=== PATIENT | male | born 1985 | race Caucasian/White ===

== ENCOUNTER 2021-06-18 15:02 | Emergency (ER) | payer OTHER ==
[~2021-06-18] VITALS: Ht 167.6 cm; Wt 83.0 kg
[~2021-06-18 15:02] MED LIST: DIPH25CA83 PO; P20 MT
[2021-06-18] MEDS ORDERED: ONDANSETRON 4MG ODT PO ONE (15:15)
[2021-06-18 17:10] VITALS: BP 136/90
== END 2021-06-18 17:31 | disposition home or self-care (01) ==
LOC: ER 15:02
DX: S06.0X9A Concussion with loss of consciousness of unspecified duration, initial encounter (principal); V43.52XA Car driver injured in collision with other type car in traffic accident, initial encounter; Y93.89 Activity, other specified; Y92.488 Other paved roadways as the place of occurrence of the external cause
CPT/HCPCS: 70450; 72125; 93005; 99284; Q0162